=== PATIENT | female | born 1965 ===

== ENCOUNTER → 2018-02-02 05:44 | Day surgery (SDC) | payer OTHER, BC ==
[~2018-02-02 05:44] MED LIST: Buffered Lidocaine 0.9% SYRIN* 5 ML/SYR SYRINGE INTRADERM ONE; Lactated Ringers 1000 ML Bag* 1,000 ML IV SCH; Lidocaine 1% INJ* 10 MG/ML 30 ML SDV ONE; Lidocaine 2% PF * 5 ML VIAL ONE; Midazolam* 1 MG/ML 2 ML VIAL (2 MG) ONE; Naloxone* 0.4 MG/ML 1 ML VIAL IV PRN; Propofol* 10 MG/ML 20 ML BTL ONE; ceFAZolin 2 GM PREMIX in ORs 2 GM/50 ML BAG IVPB ONE; fentaNYL* 50 MCG/ML 2 ML VIAL (100 MCG VIAL) ONE
[2018-02-02 09:15] VITALS: BP 139/85
--- NOTE | 2018-02-02 10:36 | OP ---
CC: Dr. Hill Peoples; Dr. Holm* OPERATIVE REPORT: DATE OF OPERATION: 02/02/18 - [facility] DATE OF : 63 SURGEON: Hill Peoples MD. [place] MASSEUSE: None. ANESTHESIOLOGIST: Dr. Acevedo. ANESTHESIA: LMAC anesthesia. PRE-OP DIAGNOSIS: Carcinoma of the breast. POST-OP DIAGNOSIS: Carcinoma of the breast. OPERATIVE PROCEDURE: Placement of left subclavian 8-[place] power port. DESCRIPTION OF PROCEDURE: The patient was supine on the operating room table. After adequate intravenous sedation, compression stockings, Cliff Hugger warmer, and intravenous antibiotics, the left chest was prepped with antiseptic, draped in a sterile fashion. Local infiltrative anesthesia was administered and approximately 3-cm subclavian incision was created. Inferior pocket was created. Subclavian venipuncture was carried out without difficulty. Guidewire passed under fluoroscopic guidance. The catheter was passed with a peel-away introducer, measured under fluoroscopy, and cut to 26 cm, attached to the port which was sutured into the pocket with 2-0 Prolene. Pocket was closed with 3-0 and 5-0 Vicryl followed by Steri-Strips. The port was accessed. There was good blood return. It was flushed with saline solution and heparinized solution, covered with the Tegaderm. She was brought to Recovery in good condition. No complications. No drains. No pathologic specimens. Sponge and instrument counts correct. Estimated blood loss was 10 mL. [id number] #: [id number] MTDD
== END | disposition home or self-care (01) ==
LOC: OR 05:44
PROVIDERS: ATTEND Surgery
DX: C50.411 Malignant neoplasm of upper-outer quadrant of right female breast (principal); M19.90 Unspecified osteoarthritis, unspecified site; N92.0 Excessive and frequent menstruation with regular cycle
CPT/HCPCS: 71045; 76000; C1788; J0690; J1642; J2250; J2704; J3010